=== PATIENT | female | born 1985 | race Two or more races ===

== ENCOUNTER 2021-03-04 11:25 | Emergency (ER) | payer OTHER ==
[~2021-03-04] VITALS: Ht 154.9 cm; Wt 55.3 kg
[2021-03-04] MEDS ORDERED: PRENATAL + DHA1 EAC1 PO (11:35)
== END 2021-03-04 17:28 ==
LOC: ER 11:25
DX: O20.0 Threatened abortion (principal); Z3A.15 15 weeks gestation of pregnancy; Z03.818 Encounter for observation for suspected exposure to other biological agents ruled out

== ENCOUNTER 2021-05-18 08:00 | Outpatient (CLI) | payer OTHER ==
[~2021-05-18 08:00] MED LIST: PRENATAL + DHA1 EAC1 PO
== END 2021-05-18 09:08 | disposition home or self-care (01) ==
LOC: PRENATAL 08:00
PROVIDERS: ATTEND Obstetrics & Gynecology Maternal & Fetal Medicine
DX: O35.0XX1 Maternal care for (suspected) central nervous system malformation in fetus, fetus 1 (principal); O35.3XX1 Maternal care for (suspected) damage to fetus from viral disease in mother, fetus 1; O98.512 Other viral diseases complicating pregnancy, second trimester; Z36.89 Encounter for other specified antenatal screening; Z3A.20 20 weeks gestation of pregnancy

== ENCOUNTER 2021-09-18 12:48 | Inpatient (IN) | payer OTHER ==
[~2021-09-18] VITALS: Ht 154.9 cm; Wt 3.2 kg
[2021-09-23] MEDS ORDERED: FOLIC ACID1 MG (10:19)
== END 2021-09-26 14:18 | disposition home or self-care (01) | DRG 785 ==
LOC: O/R 09-23 05:57 → OB/GYN 09-23 07:00
PROVIDERS: ADMIT Obstetrics & Gynecology; ATTEND Obstetrics & Gynecology
PROC: 0UB70ZZ Excision of Bilateral Fallopian Tubes, Open Approach (ICD-10-PCS; 2021-09-23)
PROC: 0UB90ZZ Excision of Uterus, Open Approach (ICD-10-PCS; 2021-09-23)
PROC: 4A1HXCZ Monitoring of Products of Conception, Cardiac Rate, External Approach (ICD-10-PCS; 2021-09-23)
PROC: 10D00Z1 Extraction of Products of Conception, Low, Open Approach (ICD-10-PCS; principal; 2021-09-23 07:00)
DX: O34.211 Maternal care for low transverse scar from previous cesarean delivery (principal); Z3A.39 39 weeks gestation of pregnancy; Z30.2 Encounter for sterilization; Z20.822 Contact with and (suspected) exposure to COVID-19; Z37.0 Single live birth; O34.13 Maternal care for benign tumor of corpus uteri, third trimester; D25.9 Leiomyoma of uterus, unspecified